=== PATIENT | female | born 1960 | race Caucasian/White ===

== ENCOUNTER → 2019-01-11 | Outpatient (CLI) | payer BC | LOC: MC.RAD 08:28 | DX: Z12.31 Encounter for screening mammogram for malignant neoplasm of breast (principal) ==

== ENCOUNTER 2019-11-21 18:49 | Emergency (ER) | payer BC ==
[~2019-11-21] VITALS: Ht 170.2 cm; Wt 83.6 kg
[2019-11-21] MEDS ORDERED: SYNTHROID0.05 MG/TA PO (19:02)
[2019-11-21 19:31] LABS: BASO # 0.1 (0.0-0.2); BASO % 0.9 % (0.0-2.0); EOS # 0.2 (0.0-0.7); EOS % 1.6 % (0-4.0); GRAN # 5.6 (1.4-6.5); GRAN % 60.6 % (42.2-75.2); HEMATOCRIT 42.1 % (37.0-47.0); HEMOGLOBIN 14.1 g/dl (12.5-16.0); LYMPH # 2.6 (1.2-3.4); LYMPH % 28.4 % (20.0-51.0); MEAN CELL VOLUME 85 fl (80.0-100.0); MEAN CORPUSCULAR HEMOGLOBIN 29 pg (27.0-31.0); MEAN CORPUSCULAR HGB CONC 34 g/dl (33.0-37.0); MEAN PLATELET VOLUME 9.7 fl (7.4-10.4); MONO # 0.8 (0.1-0.6); MONO % 8.2 % (1.7-9.3); PLATELET COUNT 322 K/mm3 (130-400); RED BLOOD COUNT 4.93 M/mm3 (4.10-5.30); REDCELL DISTRIBUTION WIDTH-CV 13.2 % (11.5-14.5)
[2019-11-21 19:42] LABS: ALANINE AMINOTRANSFERASE 33 U/L (9-52); ALBUMIN 4.8 gm/dL (3.5-5.0); ALKALINE PHOSPHATASE 82 U/L (50-136); ANION GAP 8 mmol/L (7-16); AST,SGOT 31 U/L (15-37); BILIRUBIN,TOTAL 0.5 mg/dL (0.0-1.0); BLOOD UREA NITROGEN 20 mg/dL (7-17); CALCIUM 9.9 mg/dL (8.4-10.2); CARBON DIOXIDE 29 mmol/L (22-30); CHLORIDE 100 mmol/L (98-107); CREATININE, serum 1.06 (0.52-1.25); GLUCOSE 100 mg/dL (74-106); LIPASE 151 U/L (23-300); POTASSIUM 3.6 mmol/L (3.4-5.0); SODIUM 138 mmol/L (137-145); TOTAL PROTEIN 8.1 gm/dL (6.4-8.2)
[2019-11-21 19:50] LABS: C-REACTIVE PROTEIN < 0.5 mg/dL (0.0-0.9)
[2019-11-21 20:03] LABS: TROPONIN-I < 0.012 ng/mL (0.000-0.035)
[2019-11-21 21:51] VITALS: BP 135/75; PULSE 67; TEMP 98.4
== END 2019-11-21 21:51 | disposition home or self-care (01) ==
LOC: COL.ER 18:49
PROVIDERS: Emergency Medicine
DX: R07.89 Other chest pain (principal); E03.9 Hypothyroidism, unspecified

== ENCOUNTER → 2020-02-07 | Outpatient (CLI) | payer BC ==
[~2020-02-07] MED LIST: SYNTHROID0.05 MG/TA PO
== END ==
LOC: MC.RAD 11:41
DX: Z12.31 Encounter for screening mammogram for malignant neoplasm of breast (principal)

== ENCOUNTER → 2021-03-11 | Outpatient (CLI) | payer OTHER | LOC: MC.RAD 14:37 | DX: Z12.31 Encounter for screening mammogram for malignant neoplasm of breast (principal) ==

== ENCOUNTER → 2022-04-02 | Outpatient (CLI) | payer OTHER | LOC: MC.RAD 07:42 | DX: Z12.31 Encounter for screening mammogram for malignant neoplasm of breast (principal) ==